=== PATIENT | female | born 1970 | race Asian ===

== ENCOUNTER → 2016-09-12 | Outpatient (CLI) | payer OTHER ==
--- OUTSIDE RECORDS SUMMARY | 2016-09-12 09:07 | XMS REPORT | Continuity of Care Document ---
Author Author [facility] Organization [facility] Address Unknown Phone Unavailable Care Team Providers Care Numerologist Name Role Phone PCP Unavailable Source Comments Some departments are not documenting in the electronic medical record. If you do not see the information that you expected, contact Release of Information in the Health Information Management department at [phone] for further assistance in locating additional records.[facility] Active Allergies and Adverse Reactions Not on File Current Medications Not on file Active Problems Not on file Social History Tobacco Use Types Packs/Day Years Used Date Never Assessed Plan of Care Date Type Specialty Providers Description 09/23/2016 Appointment Endocrinology, Metabolism & Genetics Health Maintenance Due Date Last Done Comments Physical (Comprehensive) 02/05/1979 Exam Pertussis Vaccine 02/05/1983 Tetanus Vaccine 02/05/1989 Cervical Cancer Screening 02/05/1993 Breast Cancer Screening 2012 Influenza Vaccine 03/13/2016 Results from Last 3 Months Not on file
--- NOTE | 2016-09-12 10:45 | Diagnostic Imaging Report ---
Bilateral breast ultrasound. INDICATION: Bilateral chronic milky breast discharge and outer left breast pain. FINDINGS: The four quadrants in the retroareolar region of each breast were scanned and the axilla with no underlying abnormality seen on either side. IMPRESSION: Negative study. Clinical followup recommended. ACR BI-RADS Category 1: Negative. Result letter will be mailed to the patient. Note: At least 10% of breast cancer is not imaged by mammography. Dictated by: Dictated on workstation # [id number]
--- NOTE | 2016-09-12 10:50 | Diagnostic Imaging Report ---
Bilateral breast diagnostic mammogram. INDICATION: Bilateral chronic breast discharge and lateral left side pain. Comparison exams of 09/05/2015, and prior studies were reviewed. CAD is utilized. FINDINGS: The breasts are composed of heterogeneously dense parenchyma which would decrease mammographic sensitivity. There are benign-appearing calcifications. Allowing for technique and position differences, no significant change is seen from the prior exam. IMPRESSION: Stable dense parenchyma with no suspicious focal lesion seen. Ultrasound evaluation pending. ACR BI-RADS Category 0: Incomplete. (Needs additional imaging evaluation). Result letter will be mailed to the patient. Note: At least 10% of breast cancer is not imaged by mammography. Dictated by: Dictated on workstation # [id number]
== END ==
LOC: RAD 09:03
PROVIDERS: ATTEND Nurse Practitioner Family
DX: Z12.31 Encounter for screening mammogram for malignant neoplasm of breast (principal); N64.52 Nipple discharge; D35.2 Benign neoplasm of pituitary gland
CPT/HCPCS: 77066